=== PATIENT | male | born 1985 | race Caucasian/White ===

== ENCOUNTER 2020-02-23 17:30 | Emergency (ER) | payer BC, SELFPAY ==
--- NOTE | ~2020-02-23 | XR_ITS ---
EXAMINATION: XR chest 2V 02/23/2020 18:38 INDICATION: Chest tightness. Anxiety attack. PROCEDURE: 2 view chest COMPARISON: No prior studies for comparison. FINDINGS: The lungs are clear. The cardiomediastinal silhouette is within normal limits. There are no pleural effusions. There is no pneumothorax suspected. IMPRESSION: 1: NO ACUTE CARDIOPULMONARY DISEASE. Reviewed, dictated and finalized at location A.
--- NOTE | 2020-02-23 17:34 | ECG_ITS ---
Measurements Intervals [place] Rate: 138 P: 13 CA: 129 QRS: -4 QRSD: 102 T: 49 QT: 321 QTc: 488 Interpretive Statements SINUS TACHYCARDIA INCOMPLETE RIGHT BUNDLE BRANCH BLOCK BORDERLINE ST-T WAVE ABNORMALITY- LATERAL LEADS ABNORMAL ECG Electronically Signed On 02-23-2020 18:57:06 CDT by Rod Perry D.O.
[2020-02-23 17:35] VITALS: BP 181/84; PULSE 133; RESP 18; TEMP 37.3; O2SAT 100
[2020-02-23 17:47] LABS: Basophils Absolute Auto 0.1 K/mm3 (0.0-0.1); Basophils Percent Auto 0.3 % (0.2-1.2); Eosinophils Absolute Auto 0.1 K/mm3 (0-0.3); Eosinophils Percent Auto 0.9 % (0-4.4); Hematocrit 44.7 % (42.0-52.0); Hemoglobin 15.6 g/dL (14.0-18.0); Immature Granulocyte Absolute 0.09 K/mm3 (0.00-0.031); Immature Granulocyte Percent A 0.6 % (0-0.5); Lymphocytes Absolute Auto 3.78 K/mm3 (0.9-3.2); Lymphocytes Percent Auto 23.5 % (18.3-44.2); Mean Corpuscular HGB Conc 34.9 g/dl (32-36); Mean Corpuscular Hemoglobin 30.6 pg (26-34); Mean Corpuscular Volume 87.8 fl (80-100); Mean Platelet Volume 10.8 fl (7.4-10.4); Monocytes Absolute Auto 1.3 K/mm3 (0.1-0.6); Neutrophils Absolute Auto 10.7 K/mm3 (1.3-6.7); Neutrophils Percent Auto 66.7 % (45.5-73.1); Platelet Count Result 220 k/mm3 (150-375); Red Blood Count 5.09 M/mm3 (4.6-6.20); Red Cell Distribution Width 12.6 % (11.5-14.5); White Blood Count 16.1 K/mm3 (4.5-10.0)
[2020-02-23 17:56] LABS: INR 0.9; Prothrombin Time 11.8 Seconds (11.1-14.7)
[2020-02-23 17:57] LABS: Partial Thromboplastin Time 28.3 SECONDS (22.3-36.8)
[2020-02-23 17:59] LABS: Blood Urea Nitrogen 10 mg/dL (9-20); Calcium 9.5 mg/dL (8.4-10.2); Carbon Dioxide 25 mmol/L (22-30); Chloride 101 mmol/L (98-107); Estimated CRCL calculation 121 ml/min; Estimated Glomerular Filt Rate > 60; Glucose 127 mg/dL (75-110); Potassium 3.5 mmol/L (3.4-5.0); Sodium 138 mmol/L (137-145)
[2020-02-23 18:10] LABS: Troponin I < 0.012 ng/mL (0.000-0.034)
[2020-02-23 19:19] VITALS: BP 138/89; PULSE 109; RESP 17; TEMP 36.6; O2SAT 95
--- NOTE | 2020-02-23 20:14 | PC.NURSE ---
Assumed care of pt at this time. Report from Karolyn FRIAS RN
--- NOTE | 2020-02-23 20:15 | PC.NURSE ---
Pt amb to bathroom w/ steady gait
[2020-02-23] MEDS: SODIUM CHLORIDE 0.9% IV 1,000 ML 999 ML IV CONT (20:24)
[2020-02-23 20:54] LABS: Amphetamine Screen Urine Negative (Negative); Barbiturate Screen Urine Negative (Negative); Benzodiazepines Screen Urine Negative (Negative); Cannabinoid Screen Urine Negative (Negative); Cocaine Screen Urine Negative (Negative); Methadone Screen Urine Negative (Negative); Opiate Screen Urine Negative (Negative); Phencyclidine Screen Urine Negative (Negative)
[2020-02-23 20:59] VITALS: BP 123/81; PULSE 95; RESP 19; O2SAT 96
--- NOTE | 2020-02-23 21:06 | ED.GENADULT ---
HPI - General Adult General Chief complaint: Chest Pain Stated complaint: chest pain Time Seen by Provider: 02/23/20 18:32 Source: patient Mode of arrival: ambulatory Limitations: no limitations History of Present Illness HPI narrative: Patient is a 34-year-old male who presents to emergency department noting that he had panic attack just prior to arrival was leaving work and began to have shortness of breath and dyspnea. Patient notes history of anxiety and panic and states that his symptoms are consistent with panic and anxiety patient denies any recent illness or other complaints and does not take anything for his symptoms and has close follow-up with primary care for anxiety Related Data Allergies Allergy/AdvReac Type Severity Reaction Status Date / Time No Known Allergies Allergy Unverified 02/23/20 19:23 Review of Systems Review of Systems: All systems reviewed & are unremarkable except as noted in HPI and below PMFSH Social History Social History Gender identity (if verbalized by the patient): Male Exam Narrative: Exam Narrative: GENERAL: Well-appearing, well-nourished, and in no acute distress. HEAD: Normocephalic, atraumatic. EYES: PERRLA and EOMI. ENT: Nares clear, no rhinorrhea or epistaxis. Mucous membranes moist. CHEST: Clear to auscultation. No respiratory distress. No wheezes rales or rhonchi HEART: Regular rate and rhythm. No murmur heard. Normal peripheral pulses. ABDOMEN: Soft, nontender, nondistended EXTREMITIES: Normal range of motion. No edema. SKIN: Warm, dry, no rash. NEURO: No focal deficits. Alert and oriented x3. PSYCH: Normal mood and affect. Course Course Emergency Course: Patient in the room in no distress aware of case findings treatment plan and diagnosis agreeing to follow-up as directed Vital Signs Vital signs: Vital Signs Temperature 99.2 F 02/23/20 17:35 Pulse Rate 133 H 02/23/20 17:35 Respiratory Rate 18 02/23/20 17:35 Blood Pressure 181/84 H 02/23/20 17:35 Pulse Oximetry 100 02/23/20 17:35 Temperature 98 F 02/23/20 19:19 Pulse Rate 95 02/23/20 20:59 Respiratory Rate 19 02/23/20 20:59 Blood Pressure 123/81 02/23/20 20:59 Pulse Oximetry 96 02/23/20 20:59 Medical Decision Making MDM Narrative Medical decision making narrative: ITS Impressions Chest X-Ray 02/23/20 18:47 IMPRESSION: 1: NO ACUTE CARDIOPULMONARY DISEASE. and labs are without significant high risk changes. Cardiac risk factors were reviewed. Patient is felt likely to be low risk for ACS and reasonable for further risk stratification testing as an outpatient. Pain was not sudden or maximal in onset without tearing or ripping. quality. No other signs or symptoms to suggest aortic dissection. A low-risk Wells criteria is noted. PE is felt to be unlikely. No pneumonia or URI symptoms were seen on evaluation today. Patient is felt to b reasonable for continued evaluation as an outpatient. Vital Signs Vital Signs: Vital Signs Temperature 99.2 F 02/23/20 17:35 Pulse Rate 133 H 02/23/20 17:35 Respiratory Rate 18 02/23/20 17:35 Blood Pressure 181/84 H 02/23/20 17:35 Pulse Oximetry 100 02/23/20 17:35 Temperature 98 F 02/23/20 19:19 Pulse Rate 95 02/23/20 20:59 Respiratory Rate 19 02/23/20 20:59 Blood Pressure 123/81 02/23/20 20:59 Pulse Oximetry 96 02/23/20 20:59 Lab Data Result diagrams: 02/23/20 17:40 02/23/20 17:40 Labs: Lab Results 02/23/20 02/23/20 02/23/20 Range/Units 17:40 17:40 17:40 WBC 16.1 H (4.5-10.0) K/mm3 RBC 5.09 (4.6-6.20) M/mm3 Hgb 15.6 (14.0-18.0) g/dL Hct 44.7 (42.0-52.0) % MCV 87.8 (80-100) fl MCH 30.6 (26-34) pg MCHC 34.9 (32-36) g/dl RDW 12.6 (11.5-14.5) % Plt Count 220 (150-375) k/mm3 MPV 10.8 H (7.4-10.4) fl Immature Gran % (Auto) 0.6 H (0-0.5) %
[2020-02-23 21:26] VITALS: BP 131/81; PULSE 88; RESP 16; O2SAT 95
== END 2020-02-23 21:26 | disposition home or self-care (01) ==
PROVIDERS: Emergency Medicine; Emergency Medicine Emergency Medical Services; Emergency Provider Emergency Medicine; PCP Internal Medicine
DX: R07.9 Chest pain, unspecified (principal); R00.0 Tachycardia, unspecified; I45.10 Unspecified right bundle-branch block
CPT/HCPCS: 36415; 71046; 80048; 80307; 84484; 85025; 85610; 85730; 93005; 96361; 96374; 99284; J2060; J7030